=== PATIENT | female | born 1980 | race Caucasian/White ===

== ENCOUNTER → 2021-03-23 | Outpatient (CLI) | payer BC ==
[~2021-03-23] MED LIST: TAMIFLU75 MG PO
[2021-03-23 10:51] LABS: HEMOGLOBIN 13.1 gm/dl (12.3-15.3); RED BLOOD COUNT 4.26 M/UL (4.00-5.10); WHITE BLOOD COUNT 4.2 K/UL (4.5-11.0)
[2021-03-23 11:22] LABS: BUN/CREATININE RATIO 15 (0-10)
[2021-03-24 08:12] LABS: VITAMIN D, 25-HYDROXY 46.4 ng/mL (30.0-100.0)
[2021-03-25 19:10] LABS: HEMATOCRIT 38.6 % (34.0-46.6)
== END ==
LOC: LAB 09:00
PROVIDERS: Student in an Organized Health Care Education/Training Program
DX: D50.9 Iron deficiency anemia, unspecified (principal); E53.8 Deficiency of other specified B group vitamins; E55.9 Vitamin D deficiency, unspecified
CPT/HCPCS: 36415; 80053; 82728; 82747; 83540; 83921; 83970; 85027

== ENCOUNTER 2021-06-24 14:56 | Emergency (ER) | payer BC ==
[2021-06-24] MEDS ORDERED: ROBAXIN 750 MG750 MG PO (20:07)
== END 2021-06-24 20:57 | disposition home or self-care (01) ==
LOC: ER1 14:56
DX: S16.1XXA Strain of muscle, fascia and tendon at neck level, initial encounter (principal); M54.12 Radiculopathy, cervical region; X58.XXXA Exposure to other specified factors, initial encounter
CPT/HCPCS: 72040; 96372; 99283; J1885